=== PATIENT | male | born 1955 | race Caucasian/White ===

== ENCOUNTER 2016-06-29 09:16 | Outpatient (CLI) | payer BC ==
[2013-02-01 07:38] VITALS: BP 111/77
[2016-06-29 10:07] LABS: eGFR (African) > 60; eGFR (Non-African) > 60
== END 2016-06-29 09:17 ==
LOC: LAB 09:16
PROVIDERS: ATTEND Family Medicine
DX: E11.9 Type 2 diabetes mellitus without complications (principal)
CPT/HCPCS: 36415; 80053; 80061; 82043; 83036

== ENCOUNTER 2016-09-30 09:20 | Outpatient (CLI) | payer BC ==
[2013-02-01 07:38] VITALS: BP 111/77
== END 2016-09-30 09:21 ==
LOC: LAB 09:20
PROVIDERS: ATTEND Family Medicine
DX: E11.9 Type 2 diabetes mellitus without complications (principal)
CPT/HCPCS: 36415; 83036

== ENCOUNTER 2017-03-10 10:20 | Emergency (ER) | payer BC ==
[2017-03-10 10:40] LABS: BASOPHILS % 0.7 (0.0-1.5); EOSINOPHILS % 2.4 % (0.0-6.8); MEAN CORPUSCULAR HEMOGLOBIN 31.8 pg (28.0-34.0); MEAN CORPUSCULAR VOLUME 93.4 fl (80.0-100.0); MONOCYTES % 5.2 % (0.0-11.0); NEUTROPHILS # 5.1 # k/uL (1.4-7.7)
[2017-03-10] MEDS ORDERED: ASPIRIN 81 MG CHEW TAB PO ONE (10:53)
[2017-03-10 10:57] LABS: eGFR (African) > 60; eGFR (Non-African) > 60
--- NOTE | 2017-03-10 11:11 | ED Physician Documentation ---
Chest Pain - HISTORIAN Historian: patient - HPI Stated Complaint: chest and left arm pain Chief Complaint: Chest Pain Duration: waxing, waning Last known Well Date: 03/07/17 Last Known Well Time: 08:00 Context: activity, exertion Severity: moderate Quality: pressure, tightness Chest Pain Radiation: arms (left axilla to elbow) Chest Pain Signs/Symptoms: denies: nausea, vomiting, diaphoresis, dizziness, dyspnea, tachypnea, tachycardia, palpitations, weakness Worsened By: exertion Relieved By: rest Further Comments: yes (61 year old male patient brought over from Dr Gunter's office with intermittent complaints of chest pain for the past 2-3 days. Patient reports chest pain 5/10 max with any exerction for the past 2-3 days. Denies SOB, nausea or diaphoresis. States he took 2 aspirin last night. No previous NC or CP. Denies edema in legs or ankles, denies SOB with exerction.) - ROS CONST: none MS/LYMPH: none GI/: none EYES/ENT: none SKIN/ENDO: none NEURO/PSYCH: none - PAST HX NC risk factors: hypertension, diabetes Type 2, hyperlipidemia Neuro deficit: other (history of seizures as a child, on cabamazepine) Lung disease: other (sleep apnea - uses CPAP) Surgeries/Procedures: appendectomy, other (cataract OU, trigger finger release, abdominal wall hernia repair, ) Allergies/Adverse Reactions: Allergies Allergy/AdvReac Type Severity Reaction Status Date / Time No Known Allergies Allergy Verified 03/10/17 10:44 Home Medications: Ambulatory Orders Medication Instructions Recorded Aspirin [Guilherme] 81 mg PO QD 02/01/13 - SOCIAL HX Smoking History: non-smoker - FAMILY HX Family HX: other (father had CHF) - VITAL SIGNS Vital Signs: Vital Signs Temp Pulse Resp BP Pulse Ox 91 H 20 157/102 98 03/10/17 10:51 03/10/17 10:21 03/10/17 10:21 03/10/17 10:51 - REVIEWED ASSESSMENTS Nursing Assessment Reviewed: Yes Vitals Reviewed: Yes Progress - Progress Progress: 1100 Discussed lab findings with patient, recommended transfer to cardiology. Patient prefers [facility] 1105 Call to [facility] - call reviewed. [address] Barahona - fellow construction analyst for Dr Mehta. Patient accepted for transfer. Orders to start heparin drip. 1135 at bedside, reviewed labs and plan of care. Questions answered. Heparin drip started by nursing. Patient remains pain free. BP 149/92, HR 8-92 - metoprolol 5mg IV given - EKG/XRAY/CT EKG: rhythm (SR, rate 85, no acute changes. ) XRAY: chest (negative) ED Results Lab/Radiology - Lab Results Lab Results: Lab Results 03/10/17 03/10/17 03/10/17 10:30 10:30 10:30 WBC 8.40 K/ul K/ul (4.00-12.00) RBC 4.42 M/ul M/ul (3.90-5.20) Hgb 14.1 g/dL g/dL (12.0-18.0) Hct 41.3 % % (37.0-53.0) MCV 93.4 fl fl (80.0-100.0) MCH 31.8 pg pg (28.0-34.0) MCHC 34.1 g/dL g/dL (30.0-36.0) RDW 13.2 % % (11.3-14.3) Plt Count 235 K/mm3 K/mm3 (130-400) Neut % (Auto) 60.5 % % (39.0-79.0) Lymph % (Auto) 29.5 % % (16.0-50.0) [place] % (Auto) 5.2 % % (0.0-11.0) Eos % (Auto) 2.4 % % (0.0-6.8) Baso % (Auto) 0.7 (0.0-1.5) Neut # (Auto) 5.1 # k/uL # k/uL (1.4-7.7) Lymph # (Auto) 2.5 # k/uL # k/uL (0.6-4.0) [place] # (Auto) 0.4 # k/uL # k/uL (0.0-0.9) Eos # (Auto) 0.2 # k/uL # k/uL (0.0-0.6) Baso # (Auto) 0.1 # k/uL # k/uL (0.0-0.5) Reactive Lymphs % 1.6 % % (0.0-5.0) Reactive Lymphs # 0.1 # k/uL # k/uL (0.0-0.8) Sodium 135 mmol/L L mmol/L (137-145) Potassium 4.3 mmol/L mmol/L (3.5-5.1) Chloride 102 mmol/L mmol/L (98-107) Carbon Dioxide 24 mmol/L mmol/L (22-30) BUN 12 mg/dL mg/dL (9-20) Creatinine 0.80 mg/dL mg/dL (0.66-1.25) Estimated Creat Clear 157 Est GFR ( Amer) > 60 (60 - ) Est GFR (Non-Af Amer) > 60 (60 - ) Glucose 201 mg/dL H mg/dL (74-106) Calcium 9.5 mg/dL mg/dL (8.4-10.2) Total Bilirubin 0.1 mg/dL L mg/dL (0.2-1.3) AST 32 U/L U/L (15-46) ALT 33 U/L U/L (13-69) Alkaline Phosphatase 53 U/L U/L (38-126) Troponin I 1.04 ng/mL H ng/mL (0.03-0.06) NT-Pro-B Natriuret Pep 178.7 pg/mL H pg/mL (15.0-125.0) Total Protein 7.4 g/dL g/dL (6.3-8.2) Albumin 4.1 g/dL g/dL (3.5-5.0) - Orders Orders: ED Orders Category Date Time Status Continuous EKG monitoring Q30M Care 03/10/17 10:24 Active Continuous Pulse Oximetry Q30M Care 03/10/17 10:24 Active CHEST 2 VIEW [CHEST P.A.&LAT 2 VIEWS] [RAD] Stat Exams 03/10/17 Taken CBC/PLATELET/DIFF Stat Lab 03/10/17 10:30 Completed CMP Stat Lab 03/10/17 10:30 Completed NT-proBNP Stat Lab 03/10/17 10:30 Completed TROPONIN I (cTnI) Stat Lab 03/10/17 10:30 Completed UA W/MICRO IF INDICATED Stat Lab 03/10/17 10:24 Ordered Aspirin Med 03/10/17 10:53 Discontinued 324 mg PO NOW ONE Oxygen Daily Oxygen 03/10/17 10:30 Ordered EKG WITH COMPARISON Stat Ther 03/10/17 10:24 Ordered Chest Pain Physical Exam - EXAM General Appearance: no acute distress, alert EENT: eye inspection normal, ENT inspection normal, pharynx normal, no signs of dehydration, HECTOR, no nystagmus, TM's nml Respiratory: no resp. distress, chest non-tender, nml breath sounds CVS: reg. 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
[2017-03-10] MEDS ORDERED: HEPARIN SODIUM 5000 UNIT/1 ML IV ONE (11:21)
[2017-03-10] MEDS ORDERED: HEPARIN SODIUM,PORCINE/D5W 20,000 UNIT/500 ML BAG IV ONE ×2 (11:21→11:23)
[2017-03-10] MEDS ORDERED: HEPARIN SODIUM 5000 UNIT/1 ML ONE (11:23)
[2017-03-10] MEDS ORDERED: METOPROLOL TARTRATE 5 MG/5 ML VIAL IVP ONE (11:47)
[2017-03-10 12:24] VITALS: BP 131/93
--- NOTE | 2017-03-10 13:07 | Diagnostic Imaging Report ---
KACIE JI (SILVERIO) - ER [facility] [id number] [address] Report Submission Date: Mar 10, 2017 10:52:02 AM CDT Patient Study Name: LYLE FREIRE Date: Mar 10, 2017 10:41:15 AM CDT Modality Type: CR Gender: M Description: CHEST : 57 Institution: [facility] Physician: KACIE JI (SILVERIO) - ER Examination: PA and lateral chest. History: Evaluate lung lutz. Comparison exam: None provided Findings: PA lateral chest demonstrate a normal cardiac silhouette. Mildly tortuous aorta. No focal infiltrate. Left upper lung density - presumed granuloma. No blunting of the costophrenic margins. Osseous structures are appropriate for age. Impression: No acute pulmonary process. Electronically signed on Mar 10, 2017 10:52:02 AM CDT by: Antonio RODRIGUEZ
== END 2017-03-10 12:19 | disposition short-term general hospital (02) ==
LOC: ED 10:20
DX: I21.4 Non-ST elevation (NSTEMI) myocardial infarction (principal)
CPT/HCPCS: 71020; 80053; 83880; 84484; 85025; J1644; J3490; 96374; 99284; S1016

== ENCOUNTER 2017-04-13 13:17 | Outpatient (CLI) | payer BC | END 2017-04-13 13:18 | LOC: CARD 13:17 | PROVIDERS: ATTEND Internal Medicine Cardiovascular Disease | DX: I25.10 Atherosclerotic heart disease of native coronary artery without angina pectoris (principal); I10 Essential (primary) hypertension; E78.5 Hyperlipidemia, unspecified; E11.9 Type 2 diabetes mellitus without complications; E66.9 Obesity, unspecified; G47.30 Sleep apnea, unspecified | CPT/HCPCS: 99213 ==

== ENCOUNTER 2017-05-20 09:57 | Outpatient (CLI) | payer BC ==
[2017-05-20 10:25] LABS: EOSINOPHILS % 2.2 % (0.0-6.8); MEAN CORPUSCULAR HEMOGLOBIN 33.4 pg (28.0-34.0); MEAN CORPUSCULAR VOLUME 95.2 fl (80.0-100.0); MONOCYTES % 5.7 % (0.0-11.0); NEUTROPHILS # 3.7 # k/uL (1.4-7.7)
[2017-05-20 10:48] LABS: eGFR (African) > 60; eGFR (Non-African) > 60
== END 2017-05-20 10:00 ==
LOC: LAB 09:57
PROVIDERS: ATTEND Family Medicine
DX: E11.9 Type 2 diabetes mellitus without complications (principal); E78.5 Hyperlipidemia, unspecified; R56.9 Unspecified convulsions; I10 Essential (primary) hypertension
CPT/HCPCS: 36415; 80053; 80061; 80156; 82043; 83036; 85025

== ENCOUNTER 2017-07-13 11:33 | Outpatient (CLI) | payer BC | END 2017-07-13 11:35 | LOC: CARD 11:33 | PROVIDERS: ATTEND Internal Medicine Cardiovascular Disease | DX: I25.10 Atherosclerotic heart disease of native coronary artery without angina pectoris (principal); I10 Essential (primary) hypertension; E78.5 Hyperlipidemia, unspecified; E11.9 Type 2 diabetes mellitus without complications; E66.9 Obesity, unspecified; G47.33 Obstructive sleep apnea (adult) (pediatric) | CPT/HCPCS: 99213 ==

== ENCOUNTER 2018-01-18 13:28 | Outpatient (CLI) | payer BC | END 2018-01-18 13:30 | LOC: CARD 13:28 | PROVIDERS: ATTEND Internal Medicine Cardiovascular Disease | DX: I25.10 Atherosclerotic heart disease of native coronary artery without angina pectoris (principal); I10 Essential (primary) hypertension; E78.5 Hyperlipidemia, unspecified; E11.9 Type 2 diabetes mellitus without complications; E66.9 Obesity, unspecified; G47.30 Sleep apnea, unspecified | CPT/HCPCS: 99213 ==

== ENCOUNTER 2018-05-18 09:45 | Emergency (ER) | payer BC ==
[2018-05-18] MEDS ORDERED: LIDOCAINE HCL 1% PF 50MG/5ML AMP (IM/SUTURE/PAIN CLINIC) IVP ONE (09:57)
--- NOTE | 2018-05-18 10:50 | ED Physician Documentation ---
General Adult - HISTORIAN Historian: patient - HPI Stated Complaint: thumb lac Chief Complaint: Laceration/Recheck/Suture Additional Information: Patient presents to ED with a laceration to left thumb after sustaining injury with a knife while cutting labels off tin cans today. Patient is on plavix. His last tetanus was approximately 2-3 years ago. Onset: hours (1) Timing: still present Severity: moderate - ROS CONST: no problems EYES/ENT: none CVS/RESP: none GI/: none MS/SKIN/LYMPH: none - PAST HX Past History: AMI Other History: none Surgeries/Procedures: none Allergies/Adverse Reactions: Allergies Allergy/AdvReac Type Severity Reaction Status Date / Time No Known Allergies Allergy Verified 05/18/18 10:07 Home Medications: Ambulatory Orders Medication Instructions Recorded Aspirin [Guilherme] 81 mg PO QD 02/01/13 - SOCIAL HX Smoking History: non-smoker Alcohol Use: none Drug Use: none - FAMILY HX Family History: No - VITAL SIGNS Vital Signs: Vital Signs Temp Pulse Resp BP Pulse Ox 98.4 F 79 20 171/96 96 05/18/18 09:46 05/18/18 09:46 05/18/18 09:46 05/18/18 09:46 05/18/18 09:46 - REVIEWED ASSESSMENTS Nursing Assessment Reviewed: Yes Vitals Reviewed: Yes Procedures Wound Location: upper extremity Wound's Depth, Shape: into muscle, linear Wound Explored: no foreign body removed Anesthesia: 1% Lidocaine Volume of Anesthetic: 10 ml Wound Debrided: moderate Wound Repaired With: sutures Suture Size/Type: 4:0 Number of Sutures: 7 Layer Closure?: No Sterile Dressing Applied?: Yes Splint Applied?: No Sling Applied?: No ED Results Lab/Radiology - Orders Orders: ED Orders Category Date Time Status Cleanse with NS and Betadine 1T Care 05/18/18 09:57 Active Lidocaine 1% 5ml(IM or SUTURE) [Xylocaine] Med 05/18/18 09:57 Discontinued 5 mg IVP NOW ONE General Adult Physical Exam - PHYSICAL EXAM GENERAL APPEARANCE: no distress EENT: HECTOR NECK: normal inspection, supple CVS: reg rate & rhythm, heart sounds normal ABDOMEN: soft SKIN: warm/dry, other (2 cm laceration to left thumb anterior) NEURO: motor nml, sensation nml Discharge Clincal Impression: Thumb laceration Qualifiers: Encounter type: initial encounter Damage to nail status: without damage Foreign body presence: without foreign body Laterality: left Qualified Code(s): S61.012A - Laceration without foreign body of left thumb without damage to nail, initial encounter Referrals: Mj Gunter MD [Primary Care Provider] - 2 Days Additional Instructions: 1. tylenol and/or ibuprofen as needed for pain/swelling 2. Keep sutures dry. No baths, swimming, dishwashing until sutures removed 3. Remove sutures in 7-10 days 4. Follow up with PCP in 7-10 days for suture removal 5. Return to ER for new or worsening symptoms. Condition: Stable Disposition: 01 HOME, SELF-CARE Decision to Admit: NO Date of Decison to Admit: 05/18/18 Decision Time: 10:55
[2018-05-18 11:28] VITALS: BP 164/89
== END 2018-05-18 11:07 | disposition home or self-care (01) ==
LOC: ED 09:45
DX: S61.012A Laceration without foreign body of left thumb without damage to nail, initial encounter (principal); W26.0XXA Contact with knife, initial encounter; Y93.89 Activity, other specified; Y92.9 Unspecified place or not applicable; Z79.01 Long term (current) use of anticoagulants
CPT/HCPCS: 12001; 99282

== ENCOUNTER 2018-05-26 09:06 | Outpatient (CLI) | payer BC ==
[2018-05-26 09:53] LABS: BASOPHILS % 0.4 (0.0-1.5); EOSINOPHILS % 2.1 % (0.0-6.8); MEAN CORPUSCULAR HEMOGLOBIN 32.1 pg (28.0-34.0); MONOCYTES % 6.3 % (0.0-11.0); NEUTROPHILS # 4.7 # k/uL (1.4-7.7)
[2018-05-26 10:00] LABS: eGFR (Non-African) > 60
== END 2018-05-26 09:15 ==
LOC: LAB 09:06
PROVIDERS: ATTEND Family Medicine
DX: E11.9 Type 2 diabetes mellitus without complications (principal); I10 Essential (primary) hypertension; G40.909 Epilepsy, unspecified, not intractable, without status epilepticus
CPT/HCPCS: 36415; 80053; 80061; 80156; 82043; 83036; 85025

== ENCOUNTER 2018-11-23 08:48 | Outpatient (CLI) | payer BC ==
[2018-11-23 09:15] LABS: A1C 8.5 % (<5.7)
[2018-11-23 09:29] LABS: eGFR (Non-African) > 60
[2018-11-23 09:30] LABS: HDL 39 mg/dL (>40)
== END 2018-11-23 08:50 ==
LOC: LAB 08:48
PROVIDERS: ATTEND Family Medicine
DX: E11.9 Type 2 diabetes mellitus without complications (principal); I10 Essential (primary) hypertension; I25.10 Atherosclerotic heart disease of native coronary artery without angina pectoris
CPT/HCPCS: 36415; 80053; 80061; 83036

== ENCOUNTER 2019-01-09 11:46 | Emergency (ER) | payer BC ==
[2019-01-09] MEDS ORDERED: OXYMETAZOLINE HCL 0.05% NASAL SPRAY 30 ML IEN ONE (11:53)
--- NOTE | 2019-01-09 11:53 | ED Physician Documentation ---
Epistaxis - HISTORIAN Historian: patient - HPI Stated Complaint: nose bleed Chief Complaint: Nosebleed Onset: hours (4) Timing: better Location: left Severity: mild Associated Symptoms: other (he freqently gets nose bleeds no injury ) Further Comments: yes (he presented to the clinic with nose bleed. He has blown his nose several times to get the bleeding to stop. Denies any injury - he is on plavix) - ROS MS/SKIN/LYMPH: other (none ) EYES/ENT: none CVS/RESP: denies: difficulty breathing NEURO/PSYCH: denies: dizziness, anxiety, depression - PAST HX Past History: previous nosebleeds Allergies/Adverse Reactions: Allergies Allergy/AdvReac Type Severity Reaction Status Date / Time No Known Allergies Allergy Verified 01/09/19 11:56 Home Medications: Ambulatory Orders Medication Instructions Recorded Aspirin [Guilherme] 81 mg PO QD 02/01/13 - SOCIAL HX Smoking History: non-smoker Alcohol Use: none Drug Use: none - FAMILY HX Family History: No - VITAL SIGNS Vital Signs: Vital Signs Temp Pulse Resp BP Pulse Ox 164/89 05/18/18 11:25 - REVIEWED ASSESSMENTS Nursing Assessment Reviewed: Yes Vitals Reviewed: Yes Progress - Progress Progress: 1230: after holding pressure he has little to no further blood from nose. Discharge instructions will be given DG Epistaxis Physical Exam - EXAM General Appearance: no acute distress, alert Nose: nml inspection, mucosa nml, no active bleeding, fresh clots (L) (with removal of the napkin he had in his left nare ) Head/Neck: atraumatic Eyes/Ears: eyes nml inspection Mouth: lips nml, gums nml, pharynx nml, bleeding from nasopharynx Neuro/Psych: oriented x3 Respiratory: no resp distress, chest non-tender, breath sounds normal CVS: reg rate & rhythm Abdomen: non-tender Skin: nml color, no skin rash Discharge Clincal Impression: Epistaxis Referrals: Mj Gunter MD [Primary Care Provider] - 2 Days Comments: 1. DO NOT blow nose, pick at nose, rub nose or any other physical irritation to nose 2. HOLD direct pressure for at least 5 min if nose starts to bleed again 3. Follow up with PCP as needed 4. Return to ER for any increased concerns Condition: Stable Disposition: 01 HOME, SELF-CARE Decision to Admit: NO Date of Decison to Admit: 01/09/19 Decision Time: 12:34
[2019-01-09 12:40] VITALS: BP 155/90
== END 2019-01-09 12:36 | disposition home or self-care (01) ==
LOC: ED 11:46
DX: R04.0 Epistaxis (principal)
CPT/HCPCS: 99282

== ENCOUNTER 2019-02-03 11:09 | Emergency (ER) | payer BC ==
[2019-02-03 11:29] VITALS: BP 147/92
--- NOTE | 2019-02-03 12:37 | ED Physician Documentation ---
General Adult - HISTORIAN Historian: patient - HPI Stated Complaint: nosebleed Chief Complaint: General Adult Onset: hours Timing: still present Severity: moderate Further Comments: yes (Pt is a 63 yo male with a nose bleed from his L nares. 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 Pt is on aspirin and plavix. 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 Pt has had epistaxis in the past. Usually he tx's this at home, but he has been to ER for this on o ne previous occasion. Pt is on aspirin and Plavix. 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 today, but it was not sufficiently effective.) - ROS CONST: no problems EYES/ENT: other (epistaxis) CVS/RESP: none GI/: none MS/SKIN/LYMPH: none - PAST HX Past History: other (DM, HLD, [place], Seizures) Allergies/Adverse Reactions: Allergies Allergy/AdvReac Type Severity Reaction Status Date / Time No Known Allergies Allergy Verified 01/09/19 11:56 Home Medications: Ambulatory Orders Medication Instructions Recorded Aspirin [Guilherme] 81 mg PO QD 02/01/13 - SOCIAL HX Smoking History: non-smoker - FAMILY HX Family History: No - VITAL SIGNS Vital Signs: Vital Signs Temp Pulse Resp BP Pulse Ox 98.3 F 71 20 147/92 97 02/03/19 11:17 02/03/19 11:17 02/03/19 11:17 02/03/19 11:17 02/03/19 11:17 - REVIEWED ASSESSMENTS Nursing Assessment Reviewed: Yes Vitals Reviewed: Yes Progress - Progress Progress: Rhino rocket place in L naris. Bleeding stopped D/c instructions: Rhino rocket may be removed tomorrow. Use saline flush to dampen before removal. Return to ER if bleeding recurs or follow up with primary provider for removal. General Adult Physical Exam - PHYSICAL EXAM GENERAL APPEARANCE: mild distress EENT: pharynx normal (blood seen in nasopharynx), other (epistaxis, L nostril, but blood seen in R nostril (perforated septum)) NECK: normal inspection, supple RESPIRATORY: no resp distress, chest non-tender, breath sounds normal CVS: reg rate & rhythm, heart sounds normal BACK: normal inspection SKIN: warm/dry, normal color EXTREMITIES: non-tender, normal range of motion, no evidence of injury NEURO: oriented X3, motor nml, sensation nml Discharge Clincal Impression: Epistaxis Referrals: Mj Gunter MD [Primary Care Provider] - Condition: Stable Disposition: 01 HOME, SELF-CARE Decision to Admit: NO Decision Time: 12:44
[2019-02-03] MEDS ORDERED: SILVER NITRATE APPLICATOR 1 EACH STICK..EA. TP ONE (13:05)
== END 2019-02-03 12:56 | disposition home or self-care (01) ==
LOC: ED 11:09
DX: R04.0 Epistaxis (principal)
CPT/HCPCS: 99281